=== PATIENT | female | born 1955 | race African-American/Black ===

== ENCOUNTER 2024-09-18 08:04 | Emergency (ER) | payer OTHER ==
[2024-09-18 08:44] VITALS: BP 131/90; PULSE 87; RESP 18; TEMP 98.5; BMI 22.4
[2024-09-18] MEDS: ALBUTEROL SO4 2.5/IPRATROPIUM 0.5 INH SOL 3 ML VIAL.NEB. NEB SCH (09:00)
[2024-09-18 09:24] LABS: ABSOLUTE IMMATURE GRANULOCYTES 0.02 x10^3/uL (0.0-0.031); BASOPHILS # 0.02 x10^3/uL (0.01-0.08); EOSINOPHIL % 4.7 % (0.7-5.8); EOSINOPHILS # 0.33 x10^3/uL (0.04-0.36); MCHC 32.9 g/dl (32.2-35.5); MEAN CELL VOLUME 90.0 fl (79.4-94.8); MEAN PLT VOLUME 9.9 fl (9.4-12.3); MONOCYTE # 0.37 x10^3/uL (0.24-0.86); MONOCYTE % 5.3 % (4.7-12.5); RDW 14.0 % (12.4-16.6)
[2024-09-18] MEDS ORDERED: ALBUTEROL SO4 2.5/IPRATROPIUM 0.5 INH SOL 3 ML VIAL.NEB. NEB ONE (09:24)
[2024-09-18 10:32] LABS: CO2 22.0 mmol/L (21-32); GLUCOSE,RANDOM 88.0 mg/dL (74-106)
[2024-09-18 10:35] LABS: CREATININE 1.4 mg/dL (0.55-1.3); SGOT/AST 13.0 U/L (15-37); SGPT/ALT 21.0 U/L (13-61)
[2024-09-18 10:37] LABS: TOT PROT 6.5 g/dl (6.4-8.2)
[2024-09-18 10:38] LABS: ALK PHOS 48.0 U/L (45-117)
[2024-09-18] MEDS ORDERED: AZITHROMYCIN 500 MG TABLET ONE (11:09)
[2024-09-18] MEDS: AZITHROMYCIN 500 MG TABLET PO ONE (11:14)
[2024-09-18 21:57] LABS: HCV DIAGNOSTIC IN-HOUSE W/RFLX NON-REACTIVE (NONREACTIVE)
[2024-09-18 22:14] LABS: HIV INTERPRETATION NEGATIVE (NEGATIVE)
== END 2024-09-18 11:16 | disposition home or self-care (01) ==
LOC: JER 08:04
PROC: 3E0F7GC Introduction of Other Therapeutic Substance into Respiratory Tract, Via Natural or Artificial Opening (ICD-10-PCS; principal; 2024-09-18)
DX: R05.1 Acute cough (principal); R53.81 Other malaise; R09.3 Abnormal sputum; R63.8 Other symptoms and signs concerning food and fluid intake; R63.4 Abnormal weight loss; R06.2 Wheezing; R53.83 Other fatigue
CPT/HCPCS: 36415; 71046-TC-FY; 80053; 83735; 85025; 86803; 86850; 86900; 86901; 87389; 87637-QW; 93005; 93010; 99285-25